=== PATIENT | female | born 1995 | race Caucasian/White ===

== ENCOUNTER 2023-04-19 11:17 | Inpatient (IN) | payer BC ==
[2023-04-19 11:46] VITALS: BMI 39.8
[2023-04-19] MEDS ORDERED: Bupivacaine 0.25% HCL 30 ML VIAL ONE (12:00)
[2023-04-19 12:16] LABS: Creatinine, Urine 32.4 mg/dL (47-110)
[2023-04-19] MEDS: hydrALAZINE 20 MG/ML VIAL ONE ×2 (12:26→13:00)
[2023-04-19] MEDS ORDERED: Magnesium Sulfate 20 gm/500 ml 20 GM/500 ML BAG ONE (13:08)
[2023-04-19 13:16] LABS: #Eosinphils 0.1 10x3/uL (0.0-0.5); #Monocytes 0.7 10x3/uL (0.0-1.1); #Neutrophils 7.8 10x3/uL (1.5-8.4); %Basophils 0.4 % (0.0-2.0); %Eosinophils 0.6 % (0.0-6.0); %Lymphocytes 18.5 % (18.0-47.0); %Monocytes 6.7 % (0.0-10.0); Hematocrit 36.3 % (34.9-44.5); Hemoglobin 12.1 g/dL (12.0-15.5); Mean Corpuscular HGB CONC 33.3 g/dL (32.0-36.0); Mean Corpuscular Hemoglobin 26.1 pg (27.0-33.0); Mean Corpuscular Volume 78.4 fl (81.6-98.3); Mean Platelet Volume 10.6 fl (7.4-10.4); Platelet Count 246 10x3/uL (150-450); RBC Distribution Width 14.3 % (11.5-14.5); Red Blood Cell (RBC) Count 4.63 10x6/uL (3.90-5.03); White Blood Cell (WBC) Count 10.6 10x3/uL (3.5-10.5)
[2023-04-19] MEDS ORDERED: hydrALAZINE 20 MG/ML VIAL SLOW IVP PRN ×3 (13:27)
[2023-04-19] MEDS ORDERED: Lorazepam 2 MG/ML VIAL SLOW IVP PRN (13:27)
[2023-04-19] MEDS ORDERED: HYDROcodone/Acetaminophen 5/325 mg Tablet PO PRN ×2 (13:27)
[2023-04-19] MEDS ORDERED: Promethazine HCl 25 MG/ML VIAL IM PRN (13:27)
[2023-04-19] MEDS ORDERED: Ibuprofen 800 MG TAB PO PRN (13:27)
[2023-04-19] MEDS ORDERED: Ondansetron PF 4 MG/2 ML Vial IVP PRN (13:27)
[2023-04-19] MEDS ORDERED: Lidocaine 1% (PF) 30 ML VIAL SC PRN (13:27)
[2023-04-19] MEDS ORDERED: Calcium Gluc 4.6 MEQ/10 ML (100 MG/ML) SLOW IVP PRN (13:27)
[2023-04-19] MEDS ORDERED: Labetalol HCl 100 MG/20 ML VIAL SLOW IVP PRN (13:27)
[2023-04-19] MEDS ORDERED: fentaNYL 50 mcg/mL 1 mL Vial SLOW IVP PRN (13:27)
[2023-04-19] MEDS ORDERED: Magnesium Sulfate 20 gm/500 ml 20 GM/500 ML BAG IVPB SCH (13:30)
[2023-04-19] MEDS ORDERED: Misoprostol 100 MCG TAB VAG SCH (13:30)
[2023-04-19] MEDS ORDERED: Oxytocin 30 units/NS 500 ML 500 ML IV SCH ×3 (13:30)
[2023-04-19 13:31] LABS: ALT (SGPT) 38 U/L (8-55); AST (SGOT) 35 U/L (5-34); Albumin 3.6 g/dL (3.5-5.0); Alkaline Phosphatase 179 U/L (40-110); Anion Gap 17 mmol/L (10-20); BUN (Urea Nitrogen) 9 mg/dL (7.0-18.7); Bilirubin, Total 0.3 mg/dL (0.2-1.2); Calc. Creatinine Clearance 220 mL/min (70-130); Carbon Dioxide 18 mmol/L (22-29); Chloride 106 mmol/L (98-107); Estimated GFR 125; Globulin 2.7 g/dL (2.4-3.5); Glucose 99 mg/dL (70-105); Potassium 4.2 mmol/L (3.5-5.1); Protein, Total 6.3 g/dL (6.0-8.3); Sodium 137 mmol/L (136-145)
[2023-04-19 14:22] LABS: HBSAg Index 0.27 S/CO (0-0.99); Hep B Surf Ag - L&D Non-Reactive S/CO (NonReactive)
[2023-04-19] MEDS: Labetalol HCl 100 MG/20 ML VIAL SLOW IVP PRN (14:45)
[2023-04-19 15:11] LABS: Syphilis Antibody Nonreactive (Nonreactive); Syphilis Antibody Index 0.08 S/CO (<1.00 Non-Reactive)
[2023-04-19] MEDS: Acetaminophen 500 MG TAB PO PRN ×2 (16:12→23:16)
[2023-04-19] MEDS: Misoprostol 100 MCG TAB VAG SCH ×2 (19:29→22:35)
[2023-04-20] MEDS ORDERED: fentaNYL/Ropivacaine Epidural 100 ML ONE (02:05)
[2023-04-20] MEDS ORDERED: fentaNYL 2 mcg/Ropivacaine 0.2% Epidural 100 ML CADD EPIDURAL SCH (03:00)
[2023-04-20] MEDS ORDERED: Acetaminophen 325 MG TAB PO PRN (03:00)
[2023-04-20] MEDS ORDERED: Lactated Ringer's 500 ML IV PRN (03:00)
[2023-04-20] MEDS ORDERED: Communication Order-Pharmacy FS SCH (03:00)
[2023-04-20] MEDS ORDERED: Naloxone HCl 0.4 mg/ml Vial IVP PRN ×2 (03:00)
[2023-04-20] MEDS ORDERED: Ondansetron PF 4 MG/2 ML Vial IVP PRN ×2 (03:00→07:08)
[2023-04-20] MEDS ORDERED: diphenhydrAMINE 50 MG/ML VIAL IVP PRN (03:00)
[2023-04-20] MEDS ORDERED: Promethazine HCl 25 MG/ML VIAL IM PRN (03:00)
[2023-04-20] MEDS ORDERED: ePHEDrine Sulfate 50 MG/10 ML VIAL SLOW IVP PRN (03:00)
[2023-04-20] MEDS ORDERED: Moisturizing Cream (Eucerin) 113 GM JAR TOP PRN (03:00)
[2023-04-20] MEDS ORDERED: Dexmedetomidine 200 MCG/2 ML VIAL ONE (06:18)
[2023-04-20] MEDS ORDERED: Milk Of Magnesia 30 ML UDCUP PO PRN (07:01)
[2023-04-20] MEDS ORDERED: Boostrix 0.5 ML (Tdap) VIAL (>/=7 yrs of age) IM ONE (07:01)
[2023-04-20] MEDS ORDERED: hydrALAZINE 20 MG/ML VIAL SLOW IVP PRN (07:01)
[2023-04-20] MEDS ORDERED: Bisacodyl 10 MG SUPP PR PRN (07:01)
[2023-04-20] MEDS ORDERED: Lanolin Ointment 7 GM TUBE TOP PRN (07:08)
[2023-04-20] MEDS ORDERED: Preparation H Ointment 28 GM TUBE PR PRN (07:08)
[2023-04-20] MEDS ORDERED: diphenhydrAMINE 25 MG CAP PO PRN (07:08)
[2023-04-20] MEDS ORDERED: Phytonadione Neonatal 1 MG/0.5 ML AMP ONE (07:13)
[2023-04-20] MEDS ORDERED: Erythromycin Base 0.5% Oint 1 GM TUBE ONE (07:13)
[2023-04-20] MEDS ORDERED: Oxytocin 30 units/NS 500 ML 500 ML IV SCH (07:15)
[2023-04-20] MEDS: Prenatal Vitamin 1 TAB PO SCH (08:31)
[2023-04-20] MEDS ORDERED: NIFEdipine XL 30 MG ER.TAB PO SCH ×2 (09:00→17:00)
[2023-04-20] MEDS ORDERED: HYDROcodone/Acetaminophen 5/325 mg Tablet PO PRN ×2 (09:18)
[2023-04-20] MEDS: Labetalol HCl 100 MG/20 ML VIAL SLOW IVP PRN (14:23)
[2023-04-20] MEDS: Ibuprofen 800 MG TAB PO SCH ×2 (15:52→21:35)
[2023-04-20] MEDS: Lactated Ringer's 1,000 ML IV SCH ×2 (18:59→21:39)
[2023-04-20] MEDS: Ferrous Sulfate 325 MG TAB PO SCH (19:00)
[2023-04-20] MEDS: Docusate 100 MG CAP PO SCH ×2 (19:01→21:35)
[2023-04-20] MEDS: Misoprostol 100 MCG TAB VAG SCH (19:02)
[2023-04-21] MEDS: Lactated Ringer's 1,000 ML IV SCH (05:41)
[2023-04-21] MEDS: Ibuprofen 800 MG TAB PO SCH ×3 (06:24→21:12)
[2023-04-21] MEDS ORDERED: NIFEdipine XL 60 MG ER.TAB PO SCH (09:00)
[2023-04-21] MEDS ORDERED: Ondansetron PF 4 MG/2 ML Vial IVP PRN (09:22)
[2023-04-21] MEDS ORDERED: HYDROcodone/Acetaminophen 5/325 mg Tablet PO PRN (09:22)
[2023-04-21] MEDS ORDERED: Bisacodyl 10 MG SUPP PR PRN (09:22)
[2023-04-21] MEDS: Prenatal Vitamin 1 TAB PO SCH (09:22)
[2023-04-21] MEDS ORDERED: hydrALAZINE 20 MG/ML VIAL SLOW IVP PRN (09:22)
[2023-04-21] MEDS ORDERED: Benzocaine-Menthol 82.5 ML CAN TOP PRN (09:22)
[2023-04-21] MEDS ORDERED: diphenhydrAMINE 25 MG CAP PO PRN (09:22)
[2023-04-21] MEDS ORDERED: Lanolin Ointment 7 GM TUBE TOP PRN (09:22)
[2023-04-21] MEDS ORDERED: Boostrix 0.5 ML (Tdap) VIAL (>/=7 yrs of age) IM ONE (09:22)
[2023-04-21] MEDS ORDERED: Milk Of Magnesia 30 ML UDCUP PO PRN (09:22)
[2023-04-21] MEDS: Docusate 100 MG CAP PO SCH ×2 (09:23→21:11)
[2023-04-21] MEDS ORDERED: Prenatal Vitamin 1 TAB PO SCH (10:00)
[2023-04-21] MEDS ORDERED: Ferrous Sulfate 325 MG TAB PO SCH (10:00)
[2023-04-21] MEDS ORDERED: Docusate 100 MG CAP PO SCH (10:00)
[2023-04-21] MEDS: Ferrous Sulfate 325 MG TAB PO SCH ×2 (12:52→18:33)
[2023-04-21] MEDS: HYDROcodone/Acetaminophen 5/325 mg Tablet PO PRN (22:50)
[2023-04-22] MEDS: HYDROcodone/Acetaminophen 5/325 mg Tablet PO PRN (02:28)
[2023-04-22] MEDS: Ibuprofen 800 MG TAB PO SCH ×3 (05:23→22:51)
[2023-04-22] MEDS: Ferrous Sulfate 325 MG TAB PO SCH ×2 (07:18→18:11)
[2023-04-22] MEDS: NIFEdipine XL 60 MG ER.TAB PO SCH (08:14)
[2023-04-22] MEDS: Prenatal Vitamin 1 TAB PO SCH (08:15)
[2023-04-22] MEDS: Docusate 100 MG CAP PO SCH ×2 (08:15→22:51)
[2023-04-22] MEDS ORDERED: Fioricet 325/50/40 mg Tablet PO PRN (12:11)
[2023-04-22] MEDS ORDERED: hydrALAZINE 20 MG/ML VIAL SLOW IVP PRN (12:13)
[2023-04-23] MEDS: Ibuprofen 800 MG TAB PO SCH ×3 (05:50→22:14)
[2023-04-23] MEDS: Ferrous Sulfate 325 MG TAB PO SCH ×2 (07:43→17:00)
[2023-04-23] MEDS: Docusate 100 MG CAP PO SCH ×2 (09:52→22:14)
[2023-04-23] MEDS: NIFEdipine XL 60 MG ER.TAB PO SCH (09:52)
[2023-04-23] MEDS: Prenatal Vitamin 1 TAB PO SCH (09:52)
[2023-04-23] MEDS ORDERED: Labetalol HCl 100 MG TAB PO SCH (13:30)
[2023-04-23] MEDS: Labetalol HCl 100 MG TAB PO SCH (22:14)
[2023-04-24] MEDS: Ibuprofen 800 MG TAB PO SCH ×2 (06:18→13:23)
[2023-04-24] MEDS: Ferrous Sulfate 325 MG TAB PO SCH ×2 (08:05→14:07)
[2023-04-24] MEDS: Labetalol HCl 100 MG TAB PO SCH (08:06)
[2023-04-24] MEDS: Prenatal Vitamin 1 TAB PO SCH (08:06)
[2023-04-24] MEDS: NIFEdipine XL 60 MG ER.TAB PO SCH (08:06)
[2023-04-24] MEDS: Docusate 100 MG CAP PO SCH (08:06)
[2023-04-24 11:55] VITALS: TEMP 99
[2023-04-24 15:26] VITALS: BP 144/81
== END 2023-04-24 17:15 | disposition home or self-care (01) | DRG 807 ==
LOC: CSHLD/OP 11:17 → CSHLD 12:40 → CSHPED 04-21 08:46
PROVIDERS: ADMIT Obstetrics & Gynecology; ATTEND Obstetrics & Gynecology
PROC: 10E0XZZ Delivery of Products of Conception, External Approach (ICD-10-PCS; principal; 2023-04-20)
PROC: 0HQ9XZZ Repair Perineum Skin, External Approach (ICD-10-PCS; 2023-04-20)
PROC: 3E0P7VZ Introduction of Hormone into Female Reproductive, Via Natural or Artificial Opening (ICD-10-PCS; 2023-04-20)
PROC: 3E033XZ Introduction of Vasopressor into Peripheral Vein, Percutaneous Approach (ICD-10-PCS; 2023-04-20)
DX: O14.14 Severe pre-eclampsia complicating childbirth (principal); Z37.0 Single live birth; O70.0 First degree perineal laceration during delivery; Z3A.37 37 weeks gestation of pregnancy
CPT/HCPCS: 36415; 51702; 80053; 82570; 84156; 85025; 86780; 86850; 86900; 86901; 87340; 99285; J0360; J0665; J3010; J3475; J7120